=== PATIENT | female | born 1985 | race Caucasian/White ===

== ENCOUNTER 2016-12-13 12:47 | Observation (INO) | payer MEDICAID ==
[2016-12-13] MEDS ORDERED: LIDO/EPI 1% **Not for Epidural 20 ML MDV ONE (13:33)
[2016-12-13] MEDS ORDERED: LR 1,000 ML IV ONE (13:59)
[2016-12-13] MEDS ORDERED: LIDOCAINE 1% 5 ML SDV ID PRN (13:59)
[2016-12-13] MEDS ORDERED: MIDAZOLAM 2 MG/2 ML VIAL ONE (14:02)
[2016-12-13] MEDS ORDERED: PROPOFOL 200 MG/20 ML VIAL ONE ×2 (14:14→16:29)
[2016-12-13] MEDS ORDERED: LIDOCAINE 2% 5 ML SDV ONE (14:14)
[2016-12-13] MEDS ORDERED: HYDROmorphONE/DILAUDID 2 MG/ML INJ ONE ×2 (14:15→15:30)
[2016-12-13] MEDS ORDERED: ROCURONIUM 50 MG/5 ML VIAL ONE (14:15)
[2016-12-13] MEDS ORDERED: DEXAMETHASONE 10 MG/ML VIAL IVP ONE (14:30)
[2016-12-13] MEDS ORDERED: ceFAZolin 2 GM/DEXTROSE 100 ML IV ONE (14:30)
[2016-12-13] MEDS ORDERED: LABETALOL HCL 50 MG/10 ML SYR ONE (14:53)
[2016-12-13] MEDS ORDERED: fentaNYL 100 MCG/2 ML INJ ONE (15:30)
[2016-12-13] MEDS ORDERED: ONDANSETRON 4 MG/2 ML VIAL ONE (15:33)
--- NOTE | 2016-12-13 16:23 | GOP ---
[f rep st] OPERATIVE REPORT DATE OF OPERATION: 12/13/2016 SURGEON: Geneva Coats MD ANESTHESIA: General. PREOPERATIVE DIAGNOSIS: 1. Obstructive sleep apnea. 2. Nasal obstruction. 3. Enlarged tonsils. POSTOPERATIVE DIAGNOSIS: 1. Obstructive sleep apnea. 2. Nasal obstruction. 3. Enlarged tonsils. PROCEDURE PERFORMED: FINDINGS: The patient was found to have tonsils that were 2 to 3+. She had a significantly more patent airway postoperatively. Turbinates were reduced, as these were significantly enlarged, and they were also outfractured. She had a more patent nasal airway postoperatively. ESTIMATED BLOOD LOSS: Minimal. DESCRIPTION OF PROCEDURE: PROCEDURE: 1. Tonsillectomy bilaterally, over 12. 2. Submucous resection of the inferior turbinates bilaterally. SURGEON: Dr. Coats. COMPLICATIONS: None. PROCEDURE: The patient was first seen in the preoperative area, where informed consent was obtained. She was then brought back to the operating room, where Anesthesia sedated and intubated her. The bed was turned 90 degrees. A shoulder roll was placed, and she is prepped and draped in the normal fashion. A Lauren-Jeffrey mouth gag was placed in the oral cavity and then suspended, giving good visualization of the oropharynx, with the above-noted findings. At this point, a red rubber catheter was placed through the right naris and brought out through the oral cavity, thereby suspending the palate. The right tonsil was grasped using a curved Allis clamp, then electrocautery on a low setting was used to remove the tonsil as a whole in a subcapsular plane, taking care to stay medial to the musculature. The tonsil was removed as a whole and sent off to the field for pathology separately. We then cauterized any small bleeding vessels using suction cautery. Once this was clean and dry, I then turned my attention to the left side and did the exact same thing, removing the tonsil as a whole, sending this off to field for permanent pathology, and then the field was dried and confirmed to have no bleeding. At this point the red rubber catheter was removed, and an anterior rhinoscopy was performed, noting significantly enlarged turbinates bilaterally and she has a slightly deviated septum to the left, but not significantly. At this point there was about 1 mL of 1% lidocaine with 1 to 100,000 epinephrine that was injected into the head of the inferior turbinate on each side. Once this was done, and sufficient time to act, a 2 mm turbinate blade was placed on in the head of the inferior turbinate and then using anterior rhinoscopy and direct visualization this was first placed in the head of the right inferior turbinate. A small stab incision was made, and then the turbinate blade was passed along the inferior portion of the turbinates, allowing a submucous resection. Once this was performed the turbinate blade was removed, and then the inferior turbinate was outfractured using the freer. We then turned our attention to the left side and did the exact same thing. She did have a little bit of bleeding, so Afrin-soaked pledgets were placed within the nares bilaterally, which caused this to stop. At this point the Lauren-Jeffrey mouth gag had been unsuspended previously to allow us to do the nose. This was re- suspended, and there was noted to be no active bleeding of the tonsils. I did use the 3-[address] 2 sutures on each side in between the anterior and posterior pillar to allow more space laterally. This somewhat suspended palate slightly laterally as well, to give more space. Once this was done her stomach was suctioned out using an OG tube, in with this came out clean, and we noted there was no active bleeding. The Lauren-Jeffrey mouth gag was unsuspended and released, and then removed, and then the patient was turned back over to Anesthesia, where she was awoken and extubated, and taken to PACU in stable condition. The Afrin-soaked pledgets were removed in PACU and all pledget counts and instrument counts were correct at the end of the procedure. /[id number]/MODL MTDD
[2016-12-13] MEDS ORDERED: LORazepam 2 MG/ML INJ ONE (16:32)
[2016-12-13] MEDS ORDERED: ACETAMINOPHEN 650 MG/20.3 ML UDCUP PO PRN (17:06)
[2016-12-13] MEDS ORDERED: LORazepam 1 MG TAB PO PRN (17:08)
[2016-12-13] MEDS ORDERED: D5W 1/2 NS W/ 20 KCl/L 1,000 ML IV SCH ×2 (17:15→18:00)
[2016-12-13] MEDS ORDERED: PROMETHAZINE HCL 25 MG/ML INJ IVP PRN (17:41)
[2016-12-13] MEDS: oxyCODONE ORAL SOLUTION 10 MG/0.5 ML UDSYR PO PRN (21:23)
[2016-12-14] MEDS: oxyCODONE ORAL SOLUTION 10 MG/0.5 ML UDSYR PO PRN ×2 (02:44→08:30)
[2016-12-14 07:24] VITALS: BP 122/70; PULSE 71; RESP 18; TEMP 98.3; O2SAT 94
--- NOTE | 2016-12-14 08:19 | SOAPPROG ---
SOAP Progress Note Assessment/Plan: Assessment: POD 1 Tonsillectomy and SMR turbs B. Doing well, no sig bleeding. tolerating po and no o2 needs o/n. Can d;c home today. rtc 4 weeks. d/c on pain meds and abx for a few days. Plan: 12/14/16 08:16 Subjective: did well o/n. no O2 needs. Pain controlled overall with meds. No bleeding Objective: AFVSS RA Sats mid 90s no bleeding no resp distress Vital Signs Temp Pulse Resp BP Pulse Ox 36.8 C 71 18 122/70 H 94 12/14/16 07:23 12/14/16 07:23 12/14/16 07:23 12/14/16 07:23 12/14/16 07:23 12/13/16 12/14/16 12/15/16 05:59 05:59 05:59 Intake Total 3353 Output Total 1420 Balance 1933 ICD10 Worksheet Patient Problems: Problems Problem Status Onset Obstructive sleep apnea Acute - ICD10 Problem Qualifiers (1) Obstructive sleep apnea
[2016-12-14] MEDS ORDERED: ESCITALOPRAM OXALATE 10 MG TAB PO SCH (09:00)
[2016-12-14] MEDS ORDERED: buPROPion 100 MG TAB PO SCH (09:00)
== END 2016-12-14 10:52 | disposition home or self-care (01) ==
LOC: F3N 12:47 → F3E 17:28
PROVIDERS: ADMIT Otolaryngology; ATTEND Otolaryngology
PROC: 0CTPXZZ Resection of Tonsils, External Approach (ICD-10-PCS; principal; 2016-12-13 14:15)
PROC: 09TL4ZZ Resection of Nasal Turbinate, Percutaneous Endoscopic Approach (ICD-10-PCS; principal; 2016-12-13 14:15)
DX: G47.33 Obstructive sleep apnea (adult) (pediatric) (principal); J35.1 Hypertrophy of tonsils; J34.89 Other specified disorders of nose and nasal sinuses; E66.3 Overweight; F41.9 Anxiety disorder, unspecified; Z87.891 Personal history of nicotine dependence
CPT/HCPCS: 30140; 42826; G0378; J0690; J1170; J2060; J2250; J2405; J2550; J2704; J3010

== ENCOUNTER 2018-03-24 09:42 | Emergency (ER) | payer MEDICAID ==
--- NOTE | 2018-03-24 09:48 | EDPHY ---
H & P Stated Complaint: Intermittent sharp CP located both sides of sternum x 30 mins Time Seen by Provider: 03/24/18 09:48 - Personal History LMP (Females 10-55): 8-14 Days Ago Current Tetanus Diphtheria and Acellular Pertussis (TDAP): Yes - Medical/Surgical History Hx Asthma: No Hx Chronic Respiratory Disease: No Hx Diabetes: No Hx Cardiac Disease: No Hx Renal Disease: No Hx Cirrhosis: No Hx Alcoholism: No Hx HIV/AIDS: No Hx Splenectomy or Spleen Trauma: No Other PMH: anxiety, depression, lap lorraine - Social History Smoking Status: Former smoker Constitutional: Initial Vital Signs Temperature (C) 36.7 C 03/24/18 09:43 Heart Rate 71 03/24/18 09:43 Respiratory Rate 18 03/24/18 09:43 Blood Pressure 135/69 H 03/24/18 09:43 O2 Sat (%) 97 03/24/18 09:43 O2 Delivery Mode Room Air Allergies/Adverse Reactions: No Known Allergies Allergy (Verified 03/24/18 09:43) Home Medications: Medication Instructions Recorded Escitalopram Oxalate [Lexapro] 20 mg PO DAILY 12/29/15 buPROPion SR [Wellbutrin 100mg SR 200 mg PO DAILY 12/29/15 (*)] Medical Decision Making - Diagnostics Imaging Results: Imaging Impressions Chest X-Ray 03/24/18 09:55 IMPRESSION: Normal chest x-ray. Imaging: I viewed and interpreted images myself ED Course/Re-evaluation: CHIEF COMPLAINT: Chest pain HISTORY OF PRESENT ILLNESS: The patient is a 32 y/o female complaining of sharp bilateral chest pain onset while watching TV this morning 30 minutes prior to arrival. Her pain is intermittent and non-radiating. It is primarily located on the right and left side of her mid sternum. She says she feels like "I'm loreto having a panic attack." She denies any similar symptoms like this previously. She denies recent trauma, heavy lifting, or other obvious precipitating event. No associated nausea, vomiting, dyspnea, diaphoresis. No cardiac disease or respiratory disease history, no diabetes, no hypertension, cholesterol is "high- normal." No family history of cardiac disease at a young age. REVIEW OF SYSTEMS: A comprehensive 10 system review of systems is otherwise negative aside from elements mentioned in the history of present illness and medical decision making. PHYSICAL EXAM: HR, BP, O2 Sat, RR. Temp noted General Appearance: Alert, well hydrated, appropriate, and non-toxic appearing. Head: Atraumatic without scalp tenderness or obvious injury Eyes: Pupils equal, round, reactive to light and accommodation, EOMI, no trauma , no injection. Nose: Atraumatic, no rhinorrhea, clear. Throat: Mucus membranes moist. Neck: Supple, 2+ carotid upstroke without carotid bruit, nontender, no lymphadenopathy. Respiratory: No retractions, no distress, no wheezes, and no accessory muscle use. Lungs are clear to auscultation bilaterally. Cardiovascular: Regular rate and rhythm, no murmurs, normal S1/S2, no rubs or gallops. Good capillary refill all extremities. Gastrointestinal: Abdomen is soft, nontender, non-distended, no masses, no rebound, no guarding, no peritoneal signs. Musculoskeletal: Normal active ROM of all extremities, atraumatic. Neurological: Alert, appropriate, and interactive. Nonfocal. Skin: No rashes, good turgor, no nodules on palpation. Past medical history: Anxiety, depression Past surgical history: Cholecystectomy Family history: No cardiac disease at young age Social history: Student. Lives in [place]. Former smoker. DIAGNOSTICS/PROCEDURES/CRITICAL CARE TIME: The 12 lead EKG was interpreted by myself. Sinus mechanism. No ischemic changes. See hard copy and/or "tracemaster" electronic copy for interpretation. Chest x-ray: negative DIFFERENTIAL DIAGNOSIS: The differential diagnosis for the patient's chest pain included but was not limited to myocardial ischemia, pulmonary embolus, chest wall pain, pleural inflammation, and pulmonary infectious causes. MEDICAL DECISION MAKING: This is a 32 y/o female with no significant medical history who presents with a 30-min history of intermittent, sharp bilateral chest pain. Her pain is nonreproducible and her exam is unremarkable. Suspect chest wall pain rather than cardiac etiology. Plan for IV, labs, chest x-ray, and EKG. EKG is unremarkable. Chest x-ray normal. Labs normal apart from elevated BGL. Reevaluated patient and discussed findings. She is feeling improved. Patient will be discharged home with standard care and follow up instructions. Return precautions discussed. She is comfortable with this plan. - Data Points Laboratory Results: 03/24/18 03/24/18 10:02 09:58 POC Hgb 14.6 gm/dL gm/dL (12.6-16.3) POC Hct 43 % % (38-47) POC Sodium 141 mEq/L mEq/L (135-145) POC Potassium 3.8 mEq/L mEq/L (3.3-5.0) POC Chloride 104 mEq/L mEq/L (97-110) POC BUN 7 mg/dL mg/dL (7-23) POC Creatinine 0.7 mg/dL mg/dL (0.6-1.0) POC Glucose 162 mg/dL H mg/dL (70-100) POC Troponin I 0.02 ng/mL ng/mL (0.00-0.08) Point of Care Test Results: Chemistry 03/24/18 03/24/18 10:02 09:58 POC Sodium 141 mEq/L mEq/L (135-145) POC Potassium 3.8 mEq/L mEq/L (3.3-5.0) POC Chloride 104 mEq/L mEq/L (97-110) POC BUN 7 mg/dL mg/dL (7-23) POC Creatinine 0.7 mg/dL mg/dL (0.6-1.0) POC Glucose 162 mg/dL H mg/dL (70-100) POC Troponin I 0.02 ng/mL ng/mL (0.00-0.08) ISTAT H&H 03/24/18 10:02 POC Hgb 14.6 gm/dL gm/dL (12.6-16.3) POC Hct 43 % % (38-47) Departure - Departure Disposition: Home, Routine, Self-Care Clinical Impression: Chest wall pain Condition: Good Instructions: Chest Wall Pain (ED) Additional Instructions: Take 600mg ibuprofen every 8 hours if needed for pain over the next few days. Follow up with your primary care provider for unimproved symptoms over the next 2-3 days. Return to the ED for any worsening of condition. Referrals: Savannah Molina MD [Primary Care Provider] - As per Instructions Report Scribed for: Ricardo Miranda Report Scribed by: Toña Benavides Date of Report: 03/24/18 Time of Report: 09:54
[2018-03-24 10:45] VITALS: BP 127/82
--- NOTE | 2018-03-24 11:05 | CPEKG ---
Test Reason : OPEN Blood Pressure : / mmHG Vent. Rate : 072 BPM Atrial Rate : 069 BPM P-R Int : 129 ms QRS Dur : 101 ms QT Int : 391 ms P-R-T Axes : 058 054 038 degrees QTc Int : 428 ms Sinus rhythm Confirmed by Ricardo Miranda ([id number]) on 03/24/2018 11:05:30 AM Referred By: Confirmed By:Ricardo Miranda
== END 2018-03-24 10:44 | disposition home or self-care (01) ==
DX: R07.89 Other chest pain (principal); F41.8 Other specified anxiety disorders; Z87.891 Personal history of nicotine dependence
CPT/HCPCS: 82435-PO; 82565-PO; 82947-PO; 84132-PO; 84295-PO; 84484-PO; 84520-PO; 85014-PO